=== PATIENT | male | born 1975 | race Caucasian/White ===

== ENCOUNTER 2020-08-05 06:31 | Outpatient (CLI) | payer OTHER ==
[2020-08-05 16:12] LABS: #Basophils 0.1 thou/uL (0.0-0.2); #Eosinphils 0.2 thou/uL (0.0-0.7); #Lymphocytes 2.3 thou/uL (1.20-3.40); #Monocytes 0.4 thou/uL (0.11-0.59); #Neutrophils 3.8 thou/uL (1.40-6.50); %Basophils 0.8 % (0.0-1.0); %Eosinophils 2.5 % (0.0-10.0); %Lymphocytes 34.6 % (21.0-51.0); %Monocytes 5.3 % (0.0-10.0); %Neutrophils 56.8 % (42.0-75.0); Mean Corpuscular HGB CONC 34.6 g/dL (32.0-36.0); Mean Corpuscular Hemoglobin 33.6 pg (27.0-31.0); Mean Corpuscular Volume 97.1 fL (78.0-98.0); Mean Platelet Volume 7.6 fL (7.4-10.4); Platelet Count 163 thou/uL (130-400); RBC Distribution Width 11.6 % (11.5-14.5); Red Blood Cell (RBC) Count 5.06 mill/uL (4.70-6.10); White Blood Cell (WBC) Count 6.6 thou/uL (4.8-10.8)
[2020-08-05 17:34] LABS: Anion Gap 16 mmol/L (10-20); BUN (Urea Nitrogen) 14 mg/dL (8.9-20.6); Calc. Creatinine Clearance 0 mL/min (70-130); Calcium 9.3 mg/dL (7.8-10.44); Carbon Dioxide 22 mmol/L (22-29); Chloride 103 mmol/L (98-107); Estimated GFR-MDRD Greater than 90; Glucose 109 mg/dL (70-105); Potassium 4.3 mmol/L (3.5-5.1); Sodium 137 mmol/L (136-145)
[2020-08-06 12:59] LABS: SARS-CoV-2 MS2 Positive; SARS-CoV-2 N Gene Negative; SARS-CoV-2 S Gene Negative; SARS-CoV-2 by NAA Not Detected (NotDetected); SARS-CoV-2 orf1ab Negative
== END 2020-08-05 06:32 | disposition home or self-care (01) ==
LOC: LABBT 06:31
PROVIDERS: ATTEND Surgery
DX: Z01.812 Encounter for preprocedural laboratory examination (principal); K43.2 Incisional hernia without obstruction or gangrene; Z20.828 Contact with and (suspected) exposure to other viral communicable diseases
CPT/HCPCS: 80048; 85025; 87635; U0003

== ENCOUNTER 2020-08-08 06:31 | Observation (INO) | payer OTHER ==
[2020-08-08] MEDS ORDERED: Lidocaine 1% w/Epinephrine 1:100K 20 ML VIAL ONE (08:10)
[2020-08-08] MEDS ORDERED: Bupivacaine 0.25% HCL 30 ML VIAL ONE (08:10)
[2020-08-08] MEDS ORDERED: Midazolam HCl 2 mg/2 ml Vial ONE (08:34)
[2020-08-08] MEDS ORDERED: Levofloxacin 500 mg/D5W 100 ml Premix Bag ONE (08:40)
[2020-08-08] MEDS ORDERED: Fentanyl 250 MCG/5 ML VIAL ONE (08:53)
[2020-08-08] MEDS ORDERED: HYDROmorphone 0.5 MG/0.5 ML SYRINGE ONE (08:54)
[2020-08-08] MEDS ORDERED: Rocuronium Bromide 10 MG/ML (10ML VIAL) ONE (10:07)
[2020-08-08] MEDS ORDERED: Albuterol Sulfate HFA (OR ONLY) ONE (10:07)
[2020-08-08] MEDS ORDERED: Lidocaine 1% PF 5 ML VIAL ONE (10:07)
[2020-08-08] MEDS ORDERED: Ondansetron PF 4 MG/2 ML Vial ONE (10:07)
[2020-08-08] MEDS ORDERED: PROPOFOL 200 MG/20 ML VIAL ONE (10:07)
[2020-08-08] MEDS ORDERED: Ketorolac Tromethamine 30 MG/ML VIAL ONE (10:07)
[2020-08-08] MEDS ORDERED: Glycopyrrolate 0.2 MG/ML 5 ML SYRINGE ONE (10:07)
[2020-08-08] MEDS ORDERED: Dexamethasone 20 MG/5 ML VIAL ONE (10:07)
[2020-08-08] MEDS ORDERED: Rocuronium Bromide 50 MG/5 ML VIAL ONE (10:59)
[2020-08-08] MEDS ORDERED: Fentanyl 100 MCG/2 ML VIAL ONE ×2 (11:59→12:35)
[2020-08-08] MEDS ORDERED: HYDROcodone/Acetaminophen 7.5/325 mg Tablet PO PRN (14:28)
[2020-08-08] MEDS ORDERED: hydrALAZINE 20 MG/ML VIAL SLOW IVP PRN (14:28)
[2020-08-08] MEDS ORDERED: Ondansetron PF 4 MG/2 ML Vial IVP PRN (14:28)
[2020-08-08] MEDS ORDERED: Fentanyl 100 MCG/2 ML VIAL SLOW IVP PRN (14:28)
[2020-08-08] MEDS ORDERED: Dextrose 5% in Water 1,000 ML IV PRN (14:28)
[2020-08-08] MEDS ORDERED: Dextrose 50% Abboject 50 ML SYRINGE SLOW IVP PRN (14:28)
[2020-08-08] MEDS ORDERED: Promethazine HCl 25 MG/ML VIAL IM PRN (14:28)
[2020-08-08 14:36] VITALS: BMI 37.3
[2020-08-08] MEDS: Fentanyl 100 MCG/2 ML VIAL SLOW IVP PRN ×2 (15:04→20:35)
[2020-08-08] MEDS: Sodium Chloride 0.9% 1,000 ML IV SCH (15:10)
[2020-08-08] MEDS ORDERED: cloNIDine 0.1 MG TAB ONE (17:05)
[2020-08-08] MEDS: HYDROcodone/Acetaminophen 7.5/325 mg Tablet PO PRN ×2 (17:06→23:29)
[2020-08-08] MEDS ORDERED: cloNIDine 0.1 MG TAB PO PRN (17:48)
[2020-08-08] MEDS: Famotidine 20 MG TAB PO SCH (20:35)
[2020-08-08] MEDS: Famotidine/PF 20 mg/2ml Vial SLOW IVP SCH (20:36)
--- NOTE | 2020-08-08 20:39 | OP ---
DATE OF PROCEDURE: 08/08/2020 PREOPERATIVE DIAGNOSIS: Incisional hernia. POSTOPERATIVE DIAGNOSIS: Incisional hernia. PROCEDURE PERFORMED: Da Rain laparoscopic incisional hernia repair with mesh, 10 x 15 cm Ventralex x2. ANESTHESIA: General. ESTIMATED BLOOD LOSS: Minimal. COMPLICATIONS: None. FINDINGS: The patient has multiple midline previous midline incision defects, all closed continuously. DESCRIPTION OF PROCEDURE: The patient was taken to the operating room and laid supine on the operating room table. After general anesthetic was obtained, a Leach was placed. The abdomen was shaved, prepped, and draped in a sterile fashion. Left subcostal 5-mm Optiview trocar was placed in usual fashion. High-flow pneumoperitoneum was obtained. In a left lateral abdomen, 11-mm balloon trocar in the left lower quadrant and 8-mm robot trocar were placed under direct visualization. The 5-mm subcostal was switched out to an 8 trocar. The robot was brought in over the patient's right and docked to the ports. There were some abdominal adhesions that were taken down carefully using sharp dissection. There was no injury to any intraabdominal structures. The posterior fascia and posterior abdomen were mobilized all the way from suprapubic to falciform ligament. The falciform was taken down. There were multiple small defects throughout the previous midline incision. #1 V-Loc suture was used to suture starting at the bottom working up. An additional #1 V-Loc was started from the top and worked down, these overlapped in the middle to fully close the multiple defects. A 10 x 15 cm piece of mesh was brought in and placed over the lower portion of the defects. It was started to be sewn to the posterior fascia using 2-0 V-Loc suture. An additional piece of mesh of the same size was used to cover the top portion of the repair and it took a total of three 2-0 V-Locs to fully cover. In the midportion of the repair, there was minimal overlap of the two pieces of mesh that were sewn together using the V-Loc suture. All defects were closed. All defects were covered with the mesh repair. All needles were removed from the abdomen and accounted for. All port sites were infiltrated using local anesthetic. The ports were each closed using GraNee needle Vicryl tie. The ports were removed without bleeding. Pneumoperitoneum was let down. 4-0 Monocryl and Dermabond were used to close the incisions. The patient was sent to Recovery in stable condition. All instrument counts, needle counts, and lap counts were correct. Job ID: [id number]
[2020-08-09] MEDS: Fentanyl 100 MCG/2 ML VIAL SLOW IVP PRN (03:29)
[2020-08-09] MEDS: Sodium Chloride 0.9% 1,000 ML IV SCH (06:14)
[2020-08-09] MEDS: HYDROcodone/Acetaminophen 7.5/325 mg Tablet PO PRN ×2 (06:15→10:18)
[2020-08-09] MEDS: Famotidine/PF 20 mg/2ml Vial SLOW IVP SCH (08:08)
[2020-08-09] MEDS: Famotidine 20 MG TAB PO SCH (08:46)
[2020-08-09] MEDS ORDERED: HYDROcodone/Acetaminophen 7.5/325 mg Tablet PO PRN ×2 (11:00)
--- NOTE | 2020-08-09 12:08 | DIS ---
DATE OF ADMISSION: 08/08/2020 DATE OF DISCHARGE: 08/09/2020 ADMITTING DIAGNOSIS: Incisional hernia. DISCHARGE DIAGNOSIS: Incisional hernia. PROCEDURE PERFORMED: Da Rain laparoscopic incisional hernia repair with mesh by Franny without complication. CONDITION ON DISCHARGE: Improved. STAFF: Franny. HOSPITAL COURSE: On postop day #1, the patient is doing well. He has tolerated his diet. He is ambulatory, had a bowel movement. He is discharged home. Prescriptions for [employer] and Zofran already sent to his pharmacy. He will return to see me in 2 weeks. Job ID: [id number]
[2020-08-09 16:33] VITALS: BP 161/77; TEMP 98.2
== END 2020-08-09 16:35 | disposition home or self-care (01) ==
LOC: SDC 06:31 → SURG A 12:06
PROVIDERS: ADMIT Surgery; ATTEND Surgery
PROC: 0WUF4JZ Supplement Abdominal Wall with Synthetic Substitute, Percutaneous Endoscopic Approach (ICD-10-PCS; principal; 2020-08-09)
DX: K43.2 Incisional hernia without obstruction or gangrene (principal); E13.9 Other specified diabetes mellitus without complications; F17.210 Nicotine dependence, cigarettes, uncomplicated; Z85.038 Personal history of other malignant neoplasm of large intestine; Z88.0 Allergy status to penicillin; Z88.5 Allergy status to narcotic agent
CPT/HCPCS: 94660; 96361; 96374; 96376; G0378; J1100; J1170; J1885; J1956; J2250; J2405; J2704; J3010; S0020